=== PATIENT | male | born 1955 | race Caucasian/White ===

== ENCOUNTER 2018-03-17 00:33 | Emergency (ER) | payer BC, MEDICAID ==
[2018-03-17] MEDS ORDERED: Lactated Ringer 1,000 ML IV ONE ×2 (01:23→03:14)
[2018-03-17 01:39] LABS: % BASOPHILS 0.9 % (0.0-2.0); % EOSINOPHILS 2.8 % (0.0-5.0); % LYMPHOCYTES 23.7 % (20.0-50.0); % MONOCYTES 14.7 % (2.0-10.0); % NEUTROPHILS 57.9 % (40.0-80.0); EOSINOPHILE ABSOLUTE 0.1 Th/cmm (0.1-0.4); HEMATOCRIT 42.3 % (41.0-60); HEMOGLOBIN 14.2 gm/dL (12-16); LYMPHOCYTE ABSOLUTE 1.2 Th/cmm (1.5-3.0); MEAN CELL VOLUME 89.5 fl (80-99); MEAN CORPUSCULAR HGB CONC 33.5 pg (28.0-36.0); MEAN PLATELET VOLUME 7.3 fl; MONOCYTE ABSOLUTE 0.7 Th/cmm (0.3-1.0); PLATELET COUNT 240 Th/cmm (150-400); RED BLOOD COUNT 4.73 Mil/cmm (3.80-5.80); RED CELL DISTRIBUTION WIDTH 13.7 % (11.5-20.0)
[2018-03-17 01:55] LABS: ALB/GLOB RATIO 1.2 (1.0-1.8); ALBUMIN 3.7 gm/dL (4.2-5.5); ALKALINE PHOSPHATASE 52 U/L (34-104); ANION GAP 9.3 (7.0-16.0); BILIRUBIN,TOTAL 0.9 mg/dL (0.3-1.0); BUN - UREA NITROGEN 18 mg/dL (7-25); CALCIUM SERUM 9.1 mg/dL (8.6-10.3); CARBON DIOXIDE 28.1 mEq/L (21.0-31.0); CHLORIDE 104 mEq/L (98-107); CREATININE - SERUM 1.3 mg/dL (0.7-1.3); GFR AFRICAN-AMERICAN > 60.0 ml/min (>90); GFR NON AFRICAN-AMERICAN 58.9 ml/min; GLUCOSE 93 mg/dL (70-105); POTASSIUM SERUM 4.4 mEq/L (3.5-5.1); SGOT 17 U/L (13-39); SGPT/ALT 10 U/L (7-52); SODIUM SERUM 137 mEq/L (136-145); TOTAL PROTEIN,SERUM 6.7 gm/dL (6.0-8.3)
--- NOTE | 2018-03-17 02:02 | ED Physician Chart ---
ED Chief Complaint/HPI - Patient Information Date Seen:: 03/17/18 Time Seen:: 00:53 Chief Complaint:: sore throat and blood per mouth History of Present Illness:: sore throat and blood per mouth in a smoker who has ignored his symptoms of hard , bilateral neck masses for 8 months. Has coughed up bright red blood from his mouth. No phlegm. He is able to swallow fluids and solids and his own saliva. Allergies:: Allergies Allergy/AdvReac Type Severity Reaction Status Date / Time No Known Allergies Allergy Verified 03/17/18 01:49 Vitals:: Vital Signs - 8 hr 03/17/18 00:53 Temp 99.0 F HR 75 RR 18 BP 125/79 O2 Sat % 100 Historian:: Patient Review:: Nurse's Note Reviewed ED Review of Systems - Review of Systems General/Constitutional: No fever, No chills, Weight loss, No weakness, No diaphoresis, No edema, No loss of appetite, Other (15 pound weight loss over weeks) Skin: No skin lesions, No rash, No bruising Head: No headache, No light-headedness Eyes: No loss of vision, No pain, No diplopia ENT: No earache, Sore throat, No tinnitus, Other (coughing up blood (from saliva ) not phlegm or from lungs) Neck: Neck pain, Swelling, No thyromegaly, No stiffness, Mass noted, Other (hard , bilateral neck masses noted.) Cardio Vascular: No chest pain, No palpitations, No PND, No orthopnea, No edema Pulmonary: No SOB, No cough, No sputum, No wheezing GI: No nausea, No vomiting, No diarrhea, No pain, No melena, No hematochezia, No constipation, No hematemesis G/U: No dysuria, No frequency, No hematuria Musculoskeletal: No bone or joint pain, No back pain, No muscle pain Endocrine: No polyuria, No polydipsia Psychiatric: No prior psych history, No depression, No anxiety, No suicidal ideation, No homicidal ideation, No auditory hallucination, No visual hallucination Hematopoietic: No bruising, No lymphadenopathy Allergic/Immuno: No urticaria, No angioedema Neurological: No syncope, No focal symptoms, No weakness, No paresthesia, No headache, No seizure, No dizziness, No confusion, No vertigo ED Past Medical History - Past Medical History Obtainable: Yes Past Medical History: No significant medical hx Social History: Smoker, No Alcohol Family Medical History - Family Member Mother History Unknown: Yes ED Physical Exam - Physical Examination General/Constitutional: Awake Other Gen/Cons comments:: Very thin man. Cigarettes in L shirt pocket. Head: Atraumatic Eyes: Lids, conjuctiva normal, PERRL, EOMI Skin: Nl inspection, No rash, No skin lesions, No ecchymosis, Well hydrated Other Skin comments:: bilateral neck masses (very hard), nontender on the right more than on the left consistent with lymph nodes from cancer. ENMT: External ears, nose nl, Nasal exam nl Other ENMT comments:: large left fungating mass in the region of the left tonsillar pillar which appears to start from possibly the left base of tongue. Neck: Full ROM w/o pain, No stridor Other Neck comments:: bilateral neck masses (very hard), nontender on the right more than on the left consistent with lymph nodes from cancer. Respiratory: Nl effort/Exclusion, Clear to Auscultation, No Wheeze/Rhonchi/Rales Cardio Vascular: RRR, No murmur, gallop, rubs, NL S1 S2 Neuro/Psych: Alert/oriented, Normal sensory exam, Normal motor strength, Judgement/insight normal, Mood normal, Normal gait, No focal deficits ED Labs/Radiology/EKG Results - Lab Results Results: Laboratory Tests 03/17/18 01:30 WBC 5.0 RBC 4.73 Hgb 14.2 Hct 42.3 MCV 89.5 MCH 30.0 MCHC Differential 33.5 RDW 13.7 Plt Count 240 MPV 7.3 Neutrophils % 57.9 Lymphocytes % 23.7 Monocytes % 14.7 H Eosinophils % 2.8 Basophils % 0.9 ED Assessment - Assessment General Assessment: 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 since BUN and creatinine are normal. CT scan revealed a mass on the left tonsillar side with possible ptygeroid involvement with multiple necrotic cervical lymph nodes. ED Septic Shock - . 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 Patient given a copy of his head and neck CT scan with IV contrast and a copy of his CXR. - Aftercare/Follow up Instructions Aftercare/Follow-Up Instructions:: Refer to Discharge Instructions Notes:: follow up with [facility], [facility] or [facility] as soon as possible for further evaluation and treatment modalities. patient was told to go rudy. He said that he will report to one of the aforementioned facilities on Monday. Medication Prescribed:: Given # 30, 5/325 prn. CURES run on patient. - Patient Disposition Discharge/Transfer:: Home Condition at Disposition:: Stable, Unchanged
[2018-03-17] MEDS ORDERED: IOHEXOL 300mgI/mL 100 ML VIAL ONE ×2 (02:43→02:53)
[2018-03-17 03:30] LABS: INR 0.95 (0.5-1.4); PROTHROMBIN TIME (TEST) 9.9 SECONDS (9.5-11.5)
--- NOTE | 2018-03-17 09:38 | Diagnostic Imaging Report ---
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 The lung apices are incompletely visualized.: There is no focal consolidation or pleural effusions . Left basal pleural thickening is noted. Heart size is normal. Osseous structures are intact. There is suggestion of mild scoliosis. IMPRESSION: Hyperinflated lungs and probable COPD. No focal consolidation identified. Left basal pleural thickening. If necessary CT chest follow-up may also be obtained.
--- NOTE | 2018-03-17 10:03 | Diagnostic Imaging Report ---
Head CT with intravenous contrast Indication: Hemoptysis, history of head and neck cancer Comparison: CT neck the same day Technique: Axial images were obtained from the vertex to the skull base following administration of IV contrast. Coronal reconstructions were made. Total DLP: 632, [id number] FINDINGS: Contrast enhanced examination limits assessment for subtle hemorrhages. No gross hemorrhage is identified. The ventricles and basal cisterns are patent. No mass effect or midline shift. The alexandre-white matter differentiation is preserved. No enhancing mass lesions are identified. No evidence of a skull fracture or focal soft tissue swelling. The visualized paranasal sinuses are clear. IMPRESSION: No evidence of an acute intracranial abnormality. No enhancing mass lesions identified.
--- NOTE | 2018-03-17 10:24 | Diagnostic Imaging Report ---
CT soft tissue neck with IV contrast History: Head and neck cancer Comparison: CT head the same day Technique/procedure: Axial images were obtained from the skull base to the upper thorax with IV contrast. Reconstructions were made. Total DLP 208, CTD I 8 Findings: There is diffuse abnormal soft tissue prominence in mass lesions seen along the personal service representative space extending to the left parapharyngeal region with marked mass effect upon the left nasopharyngeal, oropharyngeal, and hypopharyngeal airways. This area measures 4.0 x 5.0 x 4.3 cm. There appears to be is extension into the left submandibular region. There is also extension of left-sided tonsils and likely posterior tongue. Necrotic bilateral jugular chain lymph nodes are also noted the largest on the right side measuring 2.3 x 2 cm (image 29, series 2). The thyroid gland demonstrates mild heterogeneous enhancement the lung apices demonstrate areas of scarring. Degenerative changes of the spine are noted. Mild atherosclerosis is noted. IMPRESSION: Large mass lesions involving the left personal service representative space and also involving the left nasopharyngeal, oropharyngeal and hypopharyngeal regions with associated mass effect upon the airway. No evidence of airway blockage at this time. There is involvement of the left-sided tonsils which extends the adenoid tonsil (just inferior to the clivus) superiorly and extending to the the palatine tonsils inferiorly. There is likely involvement of the posterior tongue on the left side. Diffuse adenopathy seen with necrotic lymph nodes bilaterally along the bilateral jugular chains. Clinical correlation and follow up is recommended.
== END 2018-03-17 04:30 | disposition home or self-care (01) ==
LOC: ER 00:33
DX: C77.0 Secondary and unspecified malignant neoplasm of lymph nodes of head, face and neck (principal); R22.1 Localized swelling, mass and lump, neck; F17.200 Nicotine dependence, unspecified, uncomplicated
CPT/HCPCS: 99285; 96374; 71045; 70460; 70491; 36415; 85025; 85610; 80053; J1885; Q9967

== ENCOUNTER 2018-06-30 16:58 | Emergency (ER) | payer BC ==
--- NOTE | 2018-06-30 17:19 | ED Physician Chart ---
ED Chief Complaint/HPI - Patient Information Date Seen:: 06/30/18 Time Seen:: 17:13 Chief Complaint:: dehydration History of Present Illness:: this is a 63 yo male neck cancer patient who is here because he has not been able to eat and he has been on chemotherapy at home. Allergies:: Allergies Allergy/AdvReac Type Severity Reaction Status Date / Time No Known Allergies Allergy Verified 06/30/18 17:11 Historian:: Patient, Other (ambulatory care) Review:: Nurse's Note Reviewed, Old Chart Reviewed ED Review of Systems - Review of Systems General/Constitutional: Weight loss, Weakness, Loss of appetite Skin: No skin lesions, No rash, No bruising Head: No headache, No light-headedness Eyes: No loss of vision, No pain, No diplopia ENT: No earache, No nasal drainage, No sore throat, No tinnitus Neck: No neck pain, Swelling, No thyromegaly, No stiffness, Mass noted Cardio Vascular: No chest pain, No palpitations, No PND, No orthopnea, No edema Pulmonary: No SOB, No cough, No sputum, No wheezing GI: No nausea, No vomiting, No diarrhea, No pain, No melena, No hematochezia, No constipation, No hematemesis G/U: No dysuria, No frequency, No hematuria Musculoskeletal: No bone or joint pain, No back pain, No muscle pain Endocrine: No polyuria, No polydipsia Psychiatric: No prior psych history, No depression, No anxiety, No suicidal ideation Hematopoietic: No bruising, No lymphadenopathy Allergic/Immuno: No urticaria, No angioedema Neurological: No syncope, No focal symptoms, No weakness, No paresthesia, No headache, No seizure, No dizziness, No confusion, No vertigo ED Past Medical History - Past Medical History Obtainable: Yes Past Medical History: Other (neck cancer) Family History: None Social History: Smoker, Alcohol, Single Medication: Reviewed Family Medical History - Family Member Mother History Unknown: Yes ED Physical Exam - Physical Examination General/Constitutional: Awake, Well-developed, well-nourished, Alert, No distress, GCS 15, Non-toxic appearing, Ambulatory Head: Atraumatic Eyes: Lids, conjuctiva normal, PERRL, EOMI Skin: Nl inspection, No rash, No skin lesions, No ecchymosis, Well hydrated, No lymphadenopathy ENMT: External ears, nose nl, Nasal exam nl, Lips, teeth, gums nl Neck: Nontender, Full ROM w/o pain, No JVD, No nuchal rigidity, No bruit, No mass (large mass in the neck area with swollen nodes), No stridor Respiratory: Nl effort/Exclusion, Clear to Auscultation, No Wheeze/Rhonchi/Rales Cardio Vascular: RRR, No murmur, gallop, rubs, NL S1 S2 GI: No tenderness/rebounding/guarding, No organomegaly, No hernia, Normal BS's, Nondistended, No mass/bruits, No McBurney tenderness : No CVA tenderness Extremities: No tenderness or effusion, Full ROM, normal strength in all extremities, No edema, Normal digits & nails Neuro/Psych: Alert/oriented, DTR's symmetric, Normal sensory exam, Normal motor strength, Judgement/insight normal, Mood normal, Normal gait, No focal deficits Misc: Normal back, No paraspinal tenderness ED Labs/Radiology/EKG Results - Lab Results Results: Laboratory Results - last 24 hr 06/30/18 06/30/18 06/30/18 17:25 17:25 17:25 WBC 8.8 RBC 4.67 Hgb 13.5 Hct 41.6 MCV 89.2 MCH 28.9 MCHC Differential 32.4 RDW 13.7 Plt Count 224 MPV 7.6 Neutrophils % 86.4 H Lymphocytes % 10.1 L Monocytes % 2.5 Eosinophils % 0.3 Basophils % 0.7 PT 9.9 INR 0.95 Sodium 136 Potassium 3.6 Chloride 97 L Carbon Dioxide 29.4 Anion Gap 13.2 BUN 24 Creatinine 1.4 H Est GFR ( Amer) > 60.0 Est GFR (Non-Af Amer) 54.1 BUN/Creatinine Ratio 17.1 Glucose 101 Calcium 8.4 L Total Bilirubin 1.1 H AST 62 H ALT 38 Alkaline Phosphatase 47 Troponin I Total Protein 6.4 Albumin 3.9 L Globulin 2.5 Albumin/Globulin Ratio 1.6 TSH Urine Source Urine Color Urine Clarity Urine pH Ur Specific [place] Urine Protein Urine Glucose (UA) Urine Ketones Urine Blood Urine Nitrate Urine Bilirubin Urine Urobilinogen Ur Leukocyte Esterase Urine RBC Urine WBC Ur Epithelial Cells Urine Bacteria 0206/30/18 06/30/18 17:25 17:25 18:10 WBC RBC Hgb Hct MCV MCH MCHC Differential RDW Plt Count MPV Neutrophils % Lymphocytes % Monocytes % Eosinophils % Basophils % PT INR Sodium Potassium Chloride Carbon Dioxide Anion Gap BUN Creatinine Est GFR ( Amer) Est GFR (Non-Af Amer) BUN/Creatinine Ratio Glucose Calcium Total Bilirubin AST ALT Alkaline Phosphatase Troponin I 0.01 Total Protein Albumin Globulin Albumin/Globulin Ratio TSH 0.74 Urine Source RANDOM Urine Color YELLOW Urine Clarity HAZY Urine pH 7.5 Ur Specific [place] 1.015 Urine Protein NEGATIVE Urine Glucose (UA) NEGATIVE Urine Ketones NEGATIVE Urine Blood NEGATIVE Urine Nitrate NEGATIVE Urine Bilirubin NEGATIVE Urine Urobilinogen 0.2 Ur Leukocyte Esterase TRACE H Urine RBC NONE SEEN Urine WBC 2-5 Ur Epithelial Cells NONE SEEN Urine Bacteria FEW - EKG Interpretations EKG Time:: 17:16 Rate & Rhythm: rate=54, sinus zulema [place]: right ED Assessment - Assessment General Assessment: dehydration ED Septic Shock - . Is Septic Shock (SBP<90, OR Lactate>4 mmol\L) present?: No ED Reassessment (Disposition) - Reassessment Reassessment Condition:: Improved - Diagnosis Diagnosis:: urinary tract infection appetite loss - Aftercare/Follow up Instructions Aftercare/Follow-Up Instructions:: Counseled pt regarding lab results/diagnosis & need follow up, Refer to Discharge Instructions, Counseled pt & family regarding lab results/diagnosis & need follow up - Patient Disposition Discharge/Transfer:: Home Condition at Disposition:: Unchanged
[2018-06-30 17:32] LABS: % BASOPHILS 0.7 % (0.0-2.0); % EOSINOPHILS 0.3 % (0.0-5.0); % LYMPHOCYTES 10.1 % (20.0-50.0); % MONOCYTES 2.5 % (2.0-10.0); % NEUTROPHILS 86.4 % (40.0-80.0); BASOPHILE ABSOLUTE 0.1 Th/cumm (0-0.2); HEMATOCRIT 41.6 % (41.0-60); HEMOGLOBIN 13.5 gm/dL (12-16); LYMPHOCYTE ABSOLUTE 0.9 Th/cmm (1.5-3.0); MEAN CELL VOLUME 89.2 fl (80-99); MEAN CORPUSCULAR HEMOGLOBIN 28.9 pg (27.0-31.0); MEAN CORPUSCULAR HGB CONC 32.4 pg (28.0-36.0); MEAN PLATELET VOLUME 7.6 fl; MONOCYTE ABSOLUTE 0.2 Th/cmm (0.3-1.0); NEUTROPHILE ABSOLUTE 7.6 Th/cmm (1.8-8.0); PLATELET COUNT 224 Th/cmm (150-400); RED BLOOD COUNT 4.67 Mil/cmm (3.80-5.80); RED CELL DISTRIBUTION WIDTH 13.7 % (11.5-20.0); WHITE BLOOD COUNT 8.8 Th/cmm (4.8-10.8)
[2018-06-30 17:43] LABS: INR 0.95 (0.5-1.4); PROTHROMBIN TIME (TEST) 9.9 SECONDS (9.5-11.5)
[2018-06-30 18:20] LABS: ALB/GLOB RATIO 1.6 (1.0-1.8); ALBUMIN 3.9 gm/dL (4.2-5.5); ALKALINE PHOSPHATASE 47 U/L (34-104); ANION GAP 13.2 (7.0-16.0); BILIRUBIN,TOTAL 1.1 mg/dL (0.3-1.0); BUN - UREA NITROGEN 24 mg/dL (7-25); CALCIUM SERUM 8.4 mg/dL (8.6-10.3); CARBON DIOXIDE 29.4 mEq/L (21.0-31.0); CHLORIDE 97 mEq/L (98-107); CREATININE - SERUM 1.4 mg/dL (0.7-1.3); GFR AFRICAN-AMERICAN > 60.0 ml/min (>90); GFR NON AFRICAN-AMERICAN 54.1 ml/min; GLUCOSE 101 mg/dL (70-105); POTASSIUM SERUM 3.6 mEq/L (3.5-5.1); SGOT 62 U/L (13-39); SGPT/ALT 38 U/L (7-52); SODIUM SERUM 136 mEq/L (136-145); TOTAL PROTEIN,SERUM 6.4 gm/dL (6.0-8.3)
[2018-06-30 18:21] LABS: URINE SOURCE RANDOM
[2018-06-30 18:24] LABS: URINE BILIRUBIN NEGATIVE (NEGATIVE); URINE BLOOD NEGATIVE (NEGATIVE); URINE GLUCOSE (UA) NEGATIVE (NEGATIVE); URINE KETONE NEGATIVE (NEGATIVE); URINE LEUKOCYTE ESTERASE TRACE (NEGATIVE); URINE MICROSCOPIC INDICATED? YES; URINE NITRATE NEGATIVE (NEGATIVE); URINE PH 7.5 (4.6 - 8.0); URINE PROTEIN NEGATIVE (NEGATIVE); URINE UROBILINOGEN 0.2 E.U./dL (0.2 - 1.0)
[2018-06-30 18:37] LABS: URINE COLOR YELLOW
[2018-06-30 18:40] LABS: URINE BACTERIA FEW /hpf (NONE SEEN); URINE EPITHELIAL CELLS NONE SEEN /lpf (FEW); URINE RBC NONE SEEN /hpf (0-5)
[2018-06-30 18:41] LABS: URINE CLARITY HAZY (CLEAR)
--- NOTE | 2018-07-01 09:41 | Diagnostic Imaging Report ---
CHEST X-RAY: AP view INDICATION: pain COMPARISON: 03/17/2018 FINDINGS: Right PICC line is seen with tip in SVC. Hyperinflated lungs are noted. There is no focal consolidation or pleural effusions The heart is normal in size. There is atherosclerosis of the aortic arch. The osseous structures are intact. IMPRESSION: Hyperinflated lungs and possible COPD. No focal consolidation identified. Atherosclerotic vascular disease. Right PICC line with tip in the SVC.
== END 2018-06-30 19:09 | disposition home or self-care (01) ==
LOC: ER 16:58
DX: N39.0 Urinary tract infection, site not specified (principal); E86.0 Dehydration; R63.0 Anorexia; F17.200 Nicotine dependence, unspecified, uncomplicated
CPT/HCPCS: 99284; 96374; 93005; 71045; 84484; 36415; 84443; 85025; 85610; 81001; 80053; 87040 ×2; J0696; Z7502